=== PATIENT | male | born 1950 | race Caucasian/White ===

== ENCOUNTER 2021-11-17 06:14 | Outpatient (CLI) | payer MEDICARE, OTHER ==
[~2021-11-17] VITALS: Ht 170.2 cm; Wt 97.3 kg
[~2021-11-17 06:14] MED LIST: ACHD5005 PO; ALPR.25T; ALPR.5T; AMLO1CAP31; AMLO1CAP4; ASP81TEC PO; CETI10TA17; CLON1TAB3; CLOP75TA; CYCL10TA9 PO; DPAS20025; ESCT10T; HYDR1TAB PO; LVT.05T PO; METO25TA PO; NAPR220C11 PO; OMEG-12 PO; OMEP20CA12 PO; PANT40TA PO; PARO10TA21; PARO40TA2; POLY10DR OS; PRD20T PO; SIMV20TA3 PO
[2021-11-25] MEDS ORDERED: ATOR40TA70 PO (13:12)
[2021-11-25] MEDS ORDERED: MONT-40 PO (13:12)
[2021-11-25] MEDS ORDERED: METO50TA15 PO (13:12)
[2021-11-25] MEDS ORDERED: AMLO-250 PO (13:12)
[2021-11-25] MEDS ORDERED: ACHD5005 PO (13:12)
== END 2021-11-25 13:13 ==
LOC: PREOP 06:14
PROVIDERS: ATTEND Internal Medicine
DX: Z01.818 Encounter for other preprocedural examination (principal)

== ENCOUNTER 2021-12-05 08:47 | Day surgery (SDC) | payer MEDICARE, OTHER ==
--- NOTE | 2021-11-18 07:18 | HISTORY AND PHYSICAL ---
DATE OF SERVICE: 11/21/2021 COLONOSCOPY HISTORY AND PHYSICAL DATE OF ADMISSION: 11/21/2021. HISTORY OF PRESENT ILLNESS: The patient is a 71-year-old white male seen for followup of insulin resistance and hypertension. The patient reports that over the past several months, he has noted problems with constipation and has noted change in stool caliber, it is ribbon like. He has had some left lower quadrant abdominal pain, better after passage of stool. He has noted no melena or bright red blood per rectum. He last underwent colonoscopy in 2013, at which time he had moderate to severe diverticular disease. He denies chills, fever or night sweats and there has been no change in weight noted. PHYSICAL EXAMINATION: GENERAL: Reveals a white male, appeared to be in no acute distress. VITAL SIGNS: His weight was down 3.2 pounds from June to . Blood pressure 132/78. CHEST: Clear. CARDIOVASCULAR: Reveals a regular rate and rhythm without murmur, S3 or S4. ABDOMEN: Soft and supple. Mild left lower quadrant and right lower quadrant discomfort to palpation without mass or organomegaly. Bowel sounds are positive. EXTREMITIES: Reveal no cyanosis, clubbing or edema. ASSESSMENT AND PLAN: With change in stool caliber and left lower quadrant abdominal pain with history of diverticular disease, the patient is being set up for diagnostic colonoscopy. Prep instructions with the Suprep kit were given and questions were answered. This will be set up for 11/21/2021. Regular followup in 4 months was given at which time we will obtain a CMP, TSH, lipid panel and A1c. The patient was given a prescription for 20 hydrocodone, which he keeps on hand for abdominal pain and uses very sparingly. We have not previously had to give him any medication and he may use one or two every one to two months. Job ID: [id number] DocumentID: [id number] Dictated Date: 11/12/2021 16:36:02 Vegetable Canner Date: 11/12/2021 16:46:14 Dictated By: FRANCINE GALINDO MD
[~2021-12-05] VITALS: Ht 170.2 cm; Wt 97.3 kg
[~2021-12-05 08:47] MED LIST changes: +AMLO-250 PO; +ATOR40TA70 PO; +METO50TA15 PO; +MONT-40 PO
[2021-12-05] MEDS ORDERED: LACTATED RINGERS 1,000 ML IV STA (08:50)
[2021-12-05] MEDS ORDERED: LACTATED RINGERS 1,000 ML IV ONE (08:53)
[2021-12-05] MEDS ORDERED: LIDOCAINE JELLY 2% 6 ML SYRINGE MM PRN (09:00)
[2021-12-05 09:10] VITALS: BP 157/85
[2021-12-05] MEDS ORDERED: PROPOFOL INJECTION 50 ML IV ONE (09:36)
--- NOTE | 2021-12-05 09:39 | Pre-Op Note & Conscious Sedat ---
Pre-Operative Progress Note H&P Reviewed The H&P was reviewed, patient examined and no changes noted. Date H&P Reviewed: Dec 05, 2021 Time H&P Reviewed: 09:10 Conscious Sedation Pre-Proced ASA Score 2 For ASA 3 and 4: Consider anesthesia and medical clearance. Also, for patients with a history of failed moderate sedation consider anesthesia. Airway Lungs Heart ASA score ASA 1: a normal healthy patient ASA 2: a patient with a mild systemic disease (mid diabetes, controlled hypertension, obesity ASA 3: a patient with a severe systemic disease that limits activity (angina, COPD, prior Myocardial infarction) ASA 4: a patient with an incapacitating disease that is a constant threat to life (CHF, renal failure) ASA 5: a moribund patient not expected to survive 24 hrs. (ruptured aneurysm) ASA 6: a declared brain- patient whose organs are being harvested. For emergent operations, add the letter E after the classification Mallampati Classification Grade 2 Sedation Plan Analgesia, Amnesia, Plan communicated to team members, Discussed options with patient/fam, Discussed risks with patient/fam The patient is an appropriate candidate to undergo the planned procedure, sedation, and anesthesia. The patient immediately re-assessed prior to indication. FRANCINE GALINDO MD Dec 05, 2021 09:39
[2021-12-05 10:15] VITALS: BP 111/75
[2021-12-05 10:20] VITALS: BP 146/77
--- NOTE | 2021-12-05 10:45 | Anesthesia-General Post-Op ---
MAC Patient Condition Mental Status/LOC: Same as Preop Cardiovascular: Satisfactory Nausea/Vomiting: Absent Respiratory: Satisfactory Pain: Controlled Complications: Absent Post Op Complications Complications None Follow Up Care/Instructions Patient Instructions None needed. Anesthesiology Discharge Order Discharge Order Patient is doing well, no complaints, stable vital signs, no apparent adverse anesthesia problems. No complications reported per nursing. TR WALDEN CRNA Dec 05, 2021 10:45
[2021-12-05 10:52] VITALS: BP 128/82
--- NOTE | 2021-12-05 15:47 | OPERATIVE REPORT ---
DATE OF SERVICE: COLONOSCOPY SUMMARY INDICATION FOR THE PROCEDURE: Left lower quadrant abdominal pain with change in stool caliber. DESCRIPTION OF PROCEDURE: The patient was placed in the left lateral decubitus position. Prior to undergoing colonoscopy, digital rectal evaluation was performed. There is no evidence for prostatic tissue on digital evaluation with no other abnormalities being noted on digital evaluation of the anal canal or distal rectal vault. Anal sphincter tone was normal and the perianal reflexes intact. The colonoscope was then inserted into the rectum and under direct visualization advanced to cecum. The cecum was identified by identification of ileocecal valve and cecal strap. Photographic documentation was obtained. Careful inspection was made as colonoscope withdrawn. Quality of prep was fair. FINDINGS: There was no evidence for internal or external hemorrhoids and the rectum was unremarkable. Moderate to severe diverticular disease was noted throughout the sigmoid colon and the distal descending colon without evidence for diverticulitis to visual a male on gross inspection. No other sigmoid or descending colonic abnormalities were appreciated. There is a significant haustral hypertrophy. The splenic flexure, transverse colon, hepatic flexure, ascending colon, and cecum were unremarkable. ASSESSMENT: Moderate to severe diverticular disease noted in the sigmoid and distal descending colon was present, but without gross evidence for underlying diverticulitis. No other abnormalities noted visually. There was absence of the prostate on digital inspection. Job ID: [id number] DocumentID: [id number] Dictated Date: 12/05/2021 10:18:55 Supervisor Fleshing Date: 12/05/2021 15:47:19 Dictated By: FRANCINE GALINDO MD
== END 2021-12-05 11:30 | disposition home or self-care (01) ==
LOC: ENDO 08:47
PROVIDERS: ATTEND Internal Medicine
DX: K57.30 Diverticulosis of large intestine without perforation or abscess without bleeding (principal); Z87.891 Personal history of nicotine dependence